=== PATIENT | female | born 1970 | race Caucasian/White ===

== ENCOUNTER 2018-06-24 08:40 | Day surgery (SDC) | payer MEDICAID ==
[2018-06-21 10:56] LABS: BASOPHILS % (AUTO) 0.2 % (0-1); EOSINOPHILS # (AUTO) 0.2 X10'3 (0-0.9); EOSINOPHILS % (AUTO) 2.8 % (0-6); LYMPHOCYTES # (AUTO) 1.4 X10'3 (1.1-4.8); LYMPHOCYTES % (AUTO) 21.2 % (21-51); MEAN CORPUSCULAR HEMOGLOBIN 29.9 PG (27.0-31.0); MEAN CORPUSCULAR HGB CONC 33.6 g/dL (33.0-36.5); MEAN PLATELET VOLUME 8.9 FL (7.4-10.4); MONOCYTES # (AUTO) 0.5 X10'3 (0-0.9); MONOCYTES % (AUTO) 7.9 % (2-12); NEUTROPHILS # (AUTO) 4.5 X10'3 (1.8-7.7); NEUTROPHILS % (AUTO) 67.9 % (42-75); PRE OP HEMATOCRIT 43.1 % (35.0-45.0); PRE OP HEMOGLOBIN 14.5 g/dL (12.0-16.0); PRE OP PLATELET COUNT 223 X10'3 (140-440); RED BLOOD COUNT 4.85 X10'6 (4.20-5.60); RED CELL DISTRIBUTION WIDTH 13.5 % (11.5-14.5)
[2018-06-21 11:13] LABS: PRE OP PROTIME 10.1 SECONDS (9.0-12.0)
[2018-06-21 11:21] LABS: ALBUMIN/GLOBULIN RATIO 1.1 (1.1-1.5); ALKALINE PHOSPHATASE 64 IU/L (46-116); BLOOD UREA NITROGEN 10 MG/DL (7-18); BUN/CREATININE RATIO 12.8 (6.6-38.0); CHLORIDE 103 MMOL/L (99-107); CREATININE 0.78 MG/DL (0.40-0.90); PRE OP ALT 37 U/L (30-65); PRE OP ANION GAP 9 (8-16); PRE OP AST 19 U/L (10-37); PRE OP BILIRUB, TOTAL 0.8 MG/DL (0.0-1.0); PRE OP GLUCOSE 99 MG/DL (70-104); PRE OP POTASSIUM 3.9 MMOL/L (3.4-5.1); PRE OP SODIUM 139 MMOL/L (135-145); TOTAL CARBON DIOXIDE 26.6 MMOL/L (24-32); TOTAL PROTEIN 7.6 G/DL (6.4-8.2); eGFR 80 ML/MIN
[2018-06-24] VITALS (8 sets, daily range): BP systolic 129–148; BP diastolic 76–101
[~2018-06-24] VITALS: Ht 167.6 cm; Wt 93.8 kg
[~2018-06-24 08:40] MED LIST: ALBU18HF2 INH; CLEAR LUNGS; CLINDAmcin 900mg/NS 50ml IVPB 50 ML IV ONE; FERR325T28 PO; LEVE750T PO; MULT-1141 PO; MUSHROOM COMPLEX; RANI150T8 PO; clindamycin 600mg/D5W 50ml 50 ML IV ONE; clindamycin-Cleocin 900mg/D5W 50 ML IV ONE; famotidine 20mg tablet PO ONE; ringers solution, lacted 1,000 ML IV SCH
--- NOTE | 2018-06-24 09:15 | NUR ---
PT STATES SHE HAD A SMALL RASH/SKIN IRRITATION AFTER USING THE CHG PREP AT HOME. DR HART NOTIFIED AND STATED TO USE BETADINE INSTEAD OF THE CHG WIPES. CLARIFIED WITH PT THAT SHE CAN TOLERATE BETADINE TOPICAL. PT STATED THAT SHE HAS USED THAT FOR A SURGERY PREP IN THE PAST WITHOUT ANY PROBLEMS.
[2018-06-24] MEDS ORDERED: triamcinolone acetonide 40mg/ml inj ONE (10:34)
[2018-06-24] MEDS ORDERED: BUPIVAcaine/PF 2.5mg/ml (0.25%) 10ml vial ONE (10:35)
[2018-06-24] MEDS ORDERED: fentaNYL/PF 50MCG/1 ML 2ML syringe ONE ×2 (11:27→11:50)
[2018-06-24] MEDS ORDERED: midazolam 2 mg/2 ml injection ONE (11:28)
[2018-06-24] MEDS ORDERED: LIDOcaine 2% (20mg/ml) 5ml vial ONE ×2 (11:31→11:42)
[2018-06-24] MEDS ORDERED: propofol inj 20 ML IV ONE (11:31)
[2018-06-24] MEDS ORDERED: ondansetron/PF 4mg/2ml inj ONE (12:23)
[2018-06-24] MEDS ORDERED: dexamethasone sod phosphate 4mg/ml inj. ONE (12:23)
--- NOTE | 2018-06-24 12:31 | NUR ---
Received from OR via [facility] , accompanied by Anesthesiologist SUSSY and report given by Anesthesiolgist. PATIENT WITH 20G PIV IN LEFT HAND RUNNING LR AT 100. DENIES PAIN. LEFT KNEE DRESSING IS CDI AND HAS + DORSALIS PEDIS. 10L MASK ON WITH 100% SATURATIONS. VSS Addendum: 06/24/18 at 1252 by Ramin Gaytan RN, RN Amended: Links added.
[2018-06-24] MEDS ORDERED: meperidine/PF 25mg/ml syringe IV PRN ×5 (12:55→13:30)
[2018-06-24] MEDS ORDERED: meperidine/PF 25mg/ml syringe ONE (12:57)
[2018-06-24] MEDS ORDERED: morphine 4 MG/ML inj SYRINge IV PRN ×2 (13:30)
[2018-06-24] MEDS ORDERED: ondansetron/PF 4mg/2ml inj IV PRN (13:30)
[2018-06-24] MEDS ORDERED: ringers solution, lacted 1,000 ML IV SCH (13:30)
[2018-06-24] MEDS ORDERED: proCHLORperazine 10 MG/2 ml inj IV PRN (13:30)
--- NOTE | 2018-06-24 13:41 | NUR ---
ALL DC CRITERIA HAS BEEN MET. IV TAKEN OUT WITHOUT COMPLICATIONS. ALL INSTRUCTIONS COVERED AND ALL QUESTIONS ANSWERED. DRESSINGS CDI. OUT VIA WHEELCHAIR TO PERSONAL VEHICLE WHERE PATIENT WAS SECURED IN AND DRIVEN HOME BY FAMILY. Addendum: 06/24/18 at 1353 by Ramin Gaytan RN, RN Amended: Links added.
== END 2018-06-24 13:41 | disposition home or self-care (01) ==
LOC: PAS 08:40
PROVIDERS: ATTEND Orthopaedic Surgery
DX: M23.222 Derangement of posterior horn of medial meniscus due to old tear or injury, left knee (principal); M23.262 Derangement of other lateral meniscus due to old tear or injury, left knee; M22.42 Chondromalacia patellae, left knee; M25.862 Other specified joint disorders, left knee; K21.9 Gastro-esophageal reflux disease without esophagitis; F41.8 Other specified anxiety disorders; E78.5 Hyperlipidemia, unspecified; J45.998 Other asthma; G40.909 Epilepsy, unspecified, not intractable, without status epilepticus; E66.8 Other obesity; E66.9 Obesity, unspecified; M17.0 Bilateral primary osteoarthritis of knee; Z88.3 Allergy status to other anti-infective agents; Z98.51 Tubal ligation status; Z88.0 Allergy status to penicillin; Z68.33 Body mass index [BMI] 33.0-33.9, adult; Z86.79 Personal history of other diseases of the circulatory system; Z88.1 Allergy status to other antibiotic agents; Z91.040 Latex allergy status; Z88.5 Allergy status to narcotic agent; Z88.2 Allergy status to sulfonamides; Z79.891 Long term (current) use of opiate analgesic; Z79.899 Other long term (current) drug therapy; Z88.8 Allergy status to other drugs, medicaments and biological substances; Z98.890 Other specified postprocedural states; Z84.89 Family history of other specified conditions
CPT/HCPCS: 29873; 29879; 29880; 36415; 80053; 82948; 85025; 85610; 85730; 93005; A6449; J1100; J2001; J2175; J2250; J2405; J2704; J3010; J3301; J3490; A6250; A7000; J7030; J7120

== ENCOUNTER 2018-11-23 12:26 | Emergency (ER) | payer MEDICAID ==
[~2018-11-23] VITALS: Ht 167.6 cm; Wt 94.0 kg
[~2018-11-23 12:26] MED LIST changes: -CLINDAmcin 900mg/NS 50ml IVPB 50 ML IV ONE; +ONDA4TAB6 PO; -clindamycin 600mg/D5W 50ml 50 ML IV ONE; -clindamycin-Cleocin 900mg/D5W 50 ML IV ONE; -famotidine 20mg tablet PO ONE; -ringers solution, lacted 1,000 ML IV SCH
[2018-11-23] MEDS ORDERED: CLIN150C2 PO (13:29)
[2018-11-23] MEDS ORDERED: clindamycin 150mg capsule PO ONE (13:30)
[2018-11-23 13:47] VITALS: BP 130/70
== END 2018-11-23 13:48 | disposition home or self-care (01) ==
LOC: ER 12:27
DX: J02.9 Acute pharyngitis, unspecified (principal); R11.2 Nausea with vomiting, unspecified; J45.909 Unspecified asthma, uncomplicated; K21.9 Gastro-esophageal reflux disease without esophagitis; F41.9 Anxiety disorder, unspecified; Z86.69 Personal history of other diseases of the nervous system and sense organs; Z98.890 Other specified postprocedural states; Z88.0 Allergy status to penicillin; Z88.8 Allergy status to other drugs, medicaments and biological substances; Z88.2 Allergy status to sulfonamides; Z88.5 Allergy status to narcotic agent; Z79.899 Other long term (current) drug therapy
CPT/HCPCS: 99283

== ENCOUNTER 2018-11-26 19:40 | Emergency (ER) | payer MEDICAID ==
[~2018-11-26] VITALS: Ht 172.7 cm; Wt 94.0 kg
[~2018-11-26 19:40] MED LIST changes: +CLIN150C2 PO
[2018-11-26 19:51] VITALS: BP 159/95
[2018-11-26] MEDS ORDERED: dexamethasone sod phosphate 10mg/ml inj PO STA (23:04)
== END 2018-11-26 23:26 | disposition home or self-care (01) ==
LOC: ER 19:41
DX: J04.0 Acute laryngitis (principal); J02.9 Acute pharyngitis, unspecified; J45.909 Unspecified asthma, uncomplicated; K21.9 Gastro-esophageal reflux disease without esophagitis; F41.9 Anxiety disorder, unspecified; Z86.69 Personal history of other diseases of the nervous system and sense organs; Z98.890 Other specified postprocedural states; Z88.8 Allergy status to other drugs, medicaments and biological substances; Z88.2 Allergy status to sulfonamides; Z88.1 Allergy status to other antibiotic agents; Z88.5 Allergy status to narcotic agent; Z88.6 Allergy status to analgesic agent; Z79.899 Other long term (current) drug therapy
CPT/HCPCS: 87081; 87880; 99283; J1100

== ENCOUNTER 2019-10-12 12:07 | Outpatient (CLI) | payer MEDICAID ==
[~2019-10-12 12:07] MED LIST changes: -CLIN150C2 PO
== END 2019-10-12 23:59 | disposition home or self-care (01) ==
LOC: VAS 12:07
PROVIDERS: ATTEND Orthopaedic Surgery
DX: S83.232D Complex tear of medial meniscus, current injury, left knee, subsequent encounter (principal); I87.2 Venous insufficiency (chronic) (peripheral); F41.9 Anxiety disorder, unspecified; M54.5 Low back pain; G40.909 Epilepsy, unspecified, not intractable, without status epilepticus; K21.9 Gastro-esophageal reflux disease without esophagitis; J45.909 Unspecified asthma, uncomplicated; E78.5 Hyperlipidemia, unspecified; E66.8 Other obesity; M17.11 Unilateral primary osteoarthritis, right knee; I82.421 Acute embolism and thrombosis of right iliac vein; X58.XXXD Exposure to other specified factors, subsequent encounter
CPT/HCPCS: 93970

== ENCOUNTER 2020-05-12 09:14 | Emergency (ER) | payer MEDICAID ==
[~2020-05-12] VITALS: Ht 167.6 cm; Wt 84.1 kg
[2020-05-12] MEDS ORDERED: ketorolac trometh. 30mg/ml inj. IV ONE (09:45)
[2020-05-12] MEDS ORDERED: ondansetron/PF 4mg/2ml inj IV ONE (09:45)
[2020-05-12] MEDS ORDERED: normal saline 1000ML IV soln IVB ONE (09:45)
[2020-05-12] MEDS ORDERED: morphine 4 MG/ML inj SYRINge IV PRN (09:45)
[2020-05-12 10:18] LABS: CLARITY,URINE SLIGHTLY CLOUDY (Clear); COLOR,URINE YELLOW (Yellow); GLUCOSE, URINE NEGATIVE (Neg); KETONES,URINE NEGATIVE (Neg); LEUKOCYTE ESTERASE ,URINE MODERATE (Neg); NITRITES, URINE NEGATIVE (Neg); OCCULT BLOOD,URINE SMALL (Neg); PROTEIN,URINE NEGATIVE (Neg); UROBILINOGEN,URINE 0.2 E.U/dL (0.2-1.0)
[2020-05-12 10:22] LABS: UA COLLECTION TYPE CLN CATCH MIDSTREAM; URINE HCG NEGATIVE (NEG)
[2020-05-12 10:23] LABS: BACTERIA,URINE 1+ /HPF (Neg); MUCUS STRANDS FEW /LPF (Neg); RBC,URINE 0-2 /HPF (0-2); SQUAMOUS EPITHELIAL CELL,UR FEW /LPF (FEW); WBC,URINE 20-30 /HPF (0-4)
[2020-05-12 10:26] LABS: BASOPHILS % (AUTO) 0.2 % (0-1); EOSINOPHILS % (AUTO) 0.5 % (0-6); HEMATOCRIT 38.9 % (35.0-45.0); LYMPHOCYTES # (AUTO) 0.8 X10'3 (1.1-4.8); MEAN CORPUSCULAR HEMOGLOBIN 29.8 PG (27.0-31.0); MEAN CORPUSCULAR HGB CONC 33.3 g/dL (33.0-36.5); MEAN CORPUSCULAR VOLUME 89.3 FL (78-98); MEAN PLATELET VOLUME 8.5 FL (7.4-10.4); MONOCYTES # (AUTO) 0.4 X10'3 (0-0.9); MONOCYTES % (AUTO) 7.2 % (2-12); NEUTROPHILS # (AUTO) 4.7 X10'3 (1.8-7.7); NEUTROPHILS % (AUTO) 78.1 % (42-75); PLATELET COUNT 199 X10'3 (140-440); RED BLOOD COUNT 4.36 X10'6 (4.20-5.60); RED CELL DISTRIBUTION WIDTH 13.1 % (11.5-14.5); WHITE BLOOD COUNT 6.1 X10'3 (4.5-11.0)
[2020-05-12 10:38] LABS: ALANINE AMINOTRANSFERASE 43 U/L (12-78); ALBUMIN 3.9 G/DL (3.4-5.0); ALBUMIN/GLOBULIN RATIO 1.1 (1.1-1.5); ALKALINE PHOSPHATASE 90 IU/L (46-116); ANION GAP 5 (8-16); ASPARTATE AMINO TRANSFERASE 19 U/L (10-37); BILIRUBIN,TOTAL 0.5 MG/DL (0.1-1.0); BLOOD UREA NITROGEN 15 MG/DL (7-18); BUN/CREATININE RATIO 20.8 (6.6-38.0); CHLORIDE 106 MMOL/L (99-107); CREATININE 0.72 MG/DL (0.40-0.90); GLUCOSE 89 MG/DL (70-104); LIPASE 88 U/L (73-393); POTASSIUM 4.3 MMOL/L (3.5-5.1); SODIUM 141 MMOL/L (135-145); TOTAL CARBON DIOXIDE 30.5 MMOL/L (24-32); TOTAL PROTEIN 7.3 G/DL (6.4-8.2); eGFR 86 ML/MIN
--- NOTE | 2020-05-12 13:00 | NUR ---
per [facility] bertha PT READY FOR DC. ALL MEDS CANCELLED
[2020-05-12 13:06] VITALS: BP 132/77
== END 2020-05-12 13:07 | disposition home or self-care (01) ==
LOC: ER 09:15
DX: R10.84 Generalized abdominal pain (principal); D28.7 Benign neoplasm of other specified female genital organs; J45.909 Unspecified asthma, uncomplicated; K21.9 Gastro-esophageal reflux disease without esophagitis; F41.9 Anxiety disorder, unspecified; Z86.69 Personal history of other diseases of the nervous system and sense organs; Z98.890 Other specified postprocedural states; Z88.0 Allergy status to penicillin; Z88.2 Allergy status to sulfonamides; Z88.1 Allergy status to other antibiotic agents; Z88.8 Allergy status to other drugs, medicaments and biological substances; Z79.899 Other long term (current) drug therapy
CPT/HCPCS: 36415; 74176; 80053; 81001; 81025; 83690; 85025; 87077; 87088; 87186; 99284

== ENCOUNTER 2020-05-21 13:16 | Emergency (ER) | payer MEDICAID ==
[~2020-05-21] VITALS: Ht 167.6 cm; Wt 81.8 kg
[2020-05-21 14:27] VITALS: BP 128/80
[2020-05-21] MEDS ORDERED: ketorolac tromethamine 15mg/ml inj. IM ONE (15:50)
[2020-05-21 16:04] LABS: CLARITY,URINE CLOUDY (Clear); COLOR,URINE YELLOW (Yellow); GLUCOSE, URINE NEGATIVE (Neg); KETONES,URINE NEGATIVE (Neg); LEUKOCYTE ESTERASE ,URINE MODERATE (Neg); NITRITES, URINE POSITIVE (Neg); OCCULT BLOOD,URINE NEGATIVE (Neg); PROTEIN,URINE NEGATIVE (Neg); UROBILINOGEN,URINE 0.2 E.U/dL (0.2-1.0)
[2020-05-21 16:05] LABS: UA COLLECTION TYPE CLN CATCH MIDSTREAM
[2020-05-21 16:10] LABS: BACTERIA,URINE 4+ /HPF (Neg); MUCUS STRANDS FEW /LPF (Neg); RBC,URINE 0-2 /HPF (0-2); SQUAMOUS EPITHELIAL CELL,UR FEW /LPF (FEW); WBC CLUMPS,URINE FEW /HPF (NEGATIVE)
[2020-05-21 16:14] LABS: BASOPHILS # (AUTO) 0.1 X10'3 (0-0.2); BASOPHILS % (AUTO) 0.7 % (0-1); EOSINOPHILS % (AUTO) 0.4 % (0-6); HEMATOCRIT 40.8 % (35.0-45.0); HEMOGLOBIN 13.4 g/dl (12.0-16.0); LYMPHOCYTES # (AUTO) 1.3 X10'3 (1.1-4.8); LYMPHOCYTES % (AUTO) 13.1 % (21-51); MEAN CORPUSCULAR HEMOGLOBIN 29.2 PG (27.0-31.0); MEAN CORPUSCULAR HGB CONC 32.8 g/dL (33.0-36.5); MEAN CORPUSCULAR VOLUME 89.1 FL (78-98); MEAN PLATELET VOLUME 8.2 FL (7.4-10.4); MONOCYTES # (AUTO) 0.4 X10'3 (0-0.9); MONOCYTES % (AUTO) 4.1 % (2-12); NEUTROPHILS # (AUTO) 8.2 X10'3 (1.8-7.7); NEUTROPHILS % (AUTO) 81.7 % (42-75); PLATELET COUNT 240 X10'3 (140-440); RED BLOOD COUNT 4.58 X10'6 (4.20-5.60); RED CELL DISTRIBUTION WIDTH 13.4 % (11.5-14.5); WHITE BLOOD COUNT 10.1 X10'3 (4.5-11.0)
[2020-05-21 16:25] LABS: ALANINE AMINOTRANSFERASE 27 U/L (12-78); ALBUMIN 4.3 G/DL (3.4-5.0); ALBUMIN/GLOBULIN RATIO 1.2 (1.1-1.5); ALKALINE PHOSPHATASE 77 IU/L (46-116); ANION GAP 5 (8-16); ASPARTATE AMINO TRANSFERASE 13 U/L (10-37); BILIRUBIN,TOTAL 0.7 MG/DL (0.1-1.0); BLOOD UREA NITROGEN 17 MG/DL (7-18); BUN/CREATININE RATIO 23.9 (6.6-38.0); CALCIUM 9.1 MG/DL (8.5-10.1); CHLORIDE 103 MMOL/L (99-107); CREATININE 0.71 MG/DL (0.40-0.90); GLUCOSE 92 MG/DL (70-104); LIPASE 75 U/L (73-393); POTASSIUM 3.9 MMOL/L (3.5-5.1); SODIUM 139 MMOL/L (135-145); TOTAL CARBON DIOXIDE 31.2 MMOL/L (24-32); TOTAL PROTEIN 7.8 G/DL (6.4-8.2); eGFR 88 ML/MIN
[2020-05-21] MEDS ORDERED: PHEN-824 PO (16:25)
[2020-05-21] MEDS ORDERED: NITR100C6 PO (16:25)
== END 2020-05-21 16:47 | disposition home or self-care (01) ==
LOC: ER 13:17
DX: R10.31 Right lower quadrant pain (principal); R10.32 Left lower quadrant pain; N39.0 Urinary tract infection, site not specified; J45.909 Unspecified asthma, uncomplicated; K21.9 Gastro-esophageal reflux disease without esophagitis; Z86.69 Personal history of other diseases of the nervous system and sense organs; Z98.890 Other specified postprocedural states; Z88.0 Allergy status to penicillin; Z88.1 Allergy status to other antibiotic agents; Z88.2 Allergy status to sulfonamides; Z88.8 Allergy status to other drugs, medicaments and biological substances; Z79.899 Other long term (current) drug therapy
CPT/HCPCS: 36415; 80053; 81001; 83690; 85025; 87088; 87186; 96372; 99283; J1885; 87077

== ENCOUNTER 2020-06-17 12:15 | Emergency (ER) | payer MEDICAID ==
[~2020-06-17] VITALS: Ht 167.6 cm; Wt 81.8 kg
[~2020-06-17 12:15] MED LIST changes: +NITR100C6 PO; +PHEN-824 PO
[2020-06-17] MEDS ORDERED: HYDROcodone/acetaminophen 5mg/325mg tablet PO ONE (12:50)
[2020-06-17 13:04] VITALS: BP 119/82
[2020-06-17 13:07] LABS: CLARITY,URINE SLIGHTLY CLOUDY (Clear); COLOR,URINE YELLOW (Yellow); GLUCOSE, URINE NEGATIVE (Neg); KETONES,URINE NEGATIVE (Neg); LEUKOCYTE ESTERASE ,URINE TRACE (Neg); NITRITES, URINE POSITIVE (Neg); OCCULT BLOOD,URINE NEGATIVE (Neg); PH,URINE 5.5 (4.8-8.0); PROTEIN,URINE NEGATIVE (Neg); UROBILINOGEN,URINE 0.2 E.U/dL (0.2-1.0)
[2020-06-17 13:08] LABS: UA COLLECTION TYPE CLN CATCH MIDSTREAM
[2020-06-17 13:17] LABS: SQUAMOUS EPITHELIAL CELL,UR MODERATE /LPF (FEW)
[2020-06-17 13:19] LABS: BACTERIA,URINE 3+ /HPF (Neg); RBC,URINE NONE SEEN /HPF (0-2)
[2020-06-17] MEDS ORDERED: HYDR-3965 PO (13:33)
[2020-06-17] MEDS ORDERED: CIPR-113 PO (13:33)
== END 2020-06-17 13:50 | disposition home or self-care (01) ==
LOC: ER 12:17
DX: N39.0 Urinary tract infection, site not specified (principal); R10.32 Left lower quadrant pain; J45.909 Unspecified asthma, uncomplicated; K21.9 Gastro-esophageal reflux disease without esophagitis; Z86.69 Personal history of other diseases of the nervous system and sense organs; Z88.0 Allergy status to penicillin; Z88.1 Allergy status to other antibiotic agents; Z88.2 Allergy status to sulfonamides; Z88.8 Allergy status to other drugs, medicaments and biological substances; Z79.899 Other long term (current) drug therapy; Z79.2 Long term (current) use of antibiotics
CPT/HCPCS: 81001; 87077; 87088; 87186; 99283

== ENCOUNTER 2020-06-18 16:33 | Emergency (ER) | payer MEDICAID ==
[~2020-06-18] VITALS: Ht 167.6 cm; Wt 81.8 kg
[~2020-06-18 16:33] MED LIST changes: +CIPR-113 PO; +HYDR-3965 PO
[2020-06-18 16:38] VITALS: BP 136/82
== END 2020-06-18 17:26 | disposition home or self-care (01) ==
LOC: ER 16:36
DX: D36.9 Benign neoplasm, unspecified site (principal); J45.909 Unspecified asthma, uncomplicated; K21.9 Gastro-esophageal reflux disease without esophagitis; Z86.69 Personal history of other diseases of the nervous system and sense organs; Z98.890 Other specified postprocedural states; Z88.0 Allergy status to penicillin; Z88.1 Allergy status to other antibiotic agents; Z88.2 Allergy status to sulfonamides; Z88.8 Allergy status to other drugs, medicaments and biological substances; Z79.2 Long term (current) use of antibiotics; Z79.899 Other long term (current) drug therapy
CPT/HCPCS: 99281

== ENCOUNTER 2020-10-04 09:31 | Day surgery (SDC) | payer MEDICAID ==
[2020-09-27 15:14] LABS: CLARITY,URINE SLIGHTLY CLOUDY (Clear); COLOR,URINE YELLOW (Yellow); GLUCOSE, URINE NEGATIVE (Neg); KETONES,URINE NEGATIVE (Neg); LEUKOCYTE ESTERASE ,URINE NEGATIVE (Neg); NITRITES, URINE NEGATIVE (Neg); OCCULT BLOOD,URINE LARGE (Neg); PH,URINE 6.5 (4.8-8.0); PROTEIN,URINE NEGATIVE (Neg); UROBILINOGEN,URINE 0.2 E.U/dL (0.2-1.0)
[2020-09-27 15:15] LABS: UA COLLECTION TYPE CLN CATCH MIDSTREAM
[2020-09-27 15:17] LABS: BASOPHILS % (AUTO) 0.3 % (0-1); EOSINOPHILS # (AUTO) 0.1 X10'3 (0-0.9); EOSINOPHILS % (AUTO) 0.9 % (0-6); LYMPHOCYTES # (AUTO) 1.6 X10'3 (1.1-4.8); LYMPHOCYTES % (AUTO) 28.4 % (21-51); MEAN CORPUSCULAR HEMOGLOBIN 29.4 PG (27.0-31.0); MEAN CORPUSCULAR HGB CONC 33.2 g/dL (33.0-36.5); MEAN CORPUSCULAR VOLUME 88.4 FL (78-98); MEAN PLATELET VOLUME 8.6 FL (7.4-10.4); MONOCYTES # (AUTO) 0.6 X10'3 (0-0.9); MONOCYTES % (AUTO) 10.4 % (2-12); NEUTROPHILS # (AUTO) 3.4 X10'3 (1.8-7.7); PRE OP HEMATOCRIT 40.7 % (35.0-45.0); PRE OP HEMOGLOBIN 13.5 g/dL (12.0-16.0); PRE OP PLATELET COUNT 239 X10'3 (140-440); RED BLOOD COUNT 4.61 X10'6 (4.20-5.60)
[2020-09-27 15:30] LABS: ALBUMIN 4.1 G/DL (3.4-5.0); ALBUMIN/GLOBULIN RATIO 1.2 (1.1-1.5); ALKALINE PHOSPHATASE 62 IU/L (46-116); BLOOD UREA NITROGEN 14 MG/DL (7-18); BUN/CREATININE RATIO 20.9 (6.6-38.0); CALCIUM 9.4 MG/DL (8.5-10.1); CHLORIDE 105 MMOL/L (99-107); CREATININE 0.67 MG/DL (0.40-0.90); PRE OP ALT 33 U/L (30-65); PRE OP ANION GAP 9 (8-16); PRE OP AST 20 U/L (10-37); PRE OP BILIRUB, TOTAL 0.8 MG/DL (0.0-1.0); PRE OP GLUCOSE 91 MG/DL (70-104); PRE OP POTASSIUM 3.8 MMOL/L (3.4-5.1); PRE OP SODIUM 143 MMOL/L (135-145); TOTAL CARBON DIOXIDE 29.1 MMOL/L (24-32); TOTAL PROTEIN 7.4 G/DL (6.4-8.2); eGFR > 90 ML/MIN
[2020-09-27 15:54] LABS: BACTERIA,URINE FEW /HPF (Neg); MUCUS STRANDS MODERATE /LPF (Neg); RBC,URINE TNTC /HPF (0-2); SQUAMOUS EPITHELIAL CELL,UR MODERATE /LPF (FEW); WBC,URINE 0-4 /HPF (0-4)
[2020-09-27 15:55] LABS: HCG SERUM QL NEGATIVE
[~2020-10-04] VITALS: Ht 167.6 cm; Wt 88.0 kg
[2020-10-04] VITALS (18 sets, daily range): BP systolic 101–150; BP diastolic 59–83
[~2020-10-04 09:31] MED LIST changes: +ACET-1025 PO; +ACET-2319 PO; +BECL10.6 PO; -CIPR-113 PO; -CLEAR LUNGS; +CYCL-1 PO; -HYDR-3965 PO; +LISI-790 PO; +LORA10TA7 PO; +MONT10TA32 PO; -MUSHROOM COMPLEX; +NAPR-996 PO; -NITR100C6 PO; +OMEP-50 PO; -ONDA4TAB6 PO; -PHEN-824 PO; -RANI150T8 PO; +clindamycin-Cleocin 900mg/D5W 50 ML IV ONE; +famotidine 20mg tablet PO ONE; +gentamicin inj 300 MG in normal saline 100ml IV soln 92.5 ML IV ONE; +ringers solution, lacted 1,000 ML IV SCH
[2020-10-04] MEDS ORDERED: BUPIVAcaine 0.5% W/EPI /PF 30ml vial ONE (13:29)
[2020-10-04] MEDS ORDERED: BUPIVAcaine/PF 2.5 mg/ml (0.25%) 30ml vial ONE (13:29)
[2020-10-04] MEDS ORDERED: fentaNYL/PF 50MCG/1 ML 2ML syringe ONE (13:48)
[2020-10-04] MEDS ORDERED: midazolam 1 mg/ML 2ml injection ONE (13:48)
[2020-10-04] MEDS ORDERED: propofol inj 20 ML IV ONE (13:50)
[2020-10-04] MEDS ORDERED: BUPIVAcaine HCl 0.25%/EPInephrine 1:200,000 inj. 10 ML VIAL ONE (13:50)
[2020-10-04] MEDS ORDERED: ondansetron/PF 4mg/2ml inj ONE (13:58)
[2020-10-04] MEDS ORDERED: rocuronium 10mg/ml inj IV ONE (13:59)
[2020-10-04] MEDS ORDERED: dexamethasone sod phosphate 4mg/ml inj. ONE (14:02)
[2020-10-04] MEDS ORDERED: morphine 4 MG/ML inj SYRINge IV PRN (14:15)
[2020-10-04] MEDS ORDERED: ondansetron/PF 4mg/2ml inj IV PRN (14:15)
[2020-10-04] MEDS ORDERED: meperidine/PF 25mg/ml syringe IV PRN ×2 (14:15)
[2020-10-04] MEDS ORDERED: ringers solution, lacted 1,000 ML IV SCH (14:15)
[2020-10-04] MEDS ORDERED: morphine 2 MG/ML inj. syringe IV PRN (14:15)
[2020-10-04] MEDS ORDERED: proCHLORperazine 10 MG/2 ml inj IV PRN (14:15)
[2020-10-04] MEDS ORDERED: meperidine/PF 25mg/ml syringe ONE (15:06)
[2020-10-04] MEDS: meperidine/PF 25mg/ml syringe IV PRN ×2 (16:20→16:41)
--- NOTE | 2020-10-04 16:20 | NUR ---
Received from OR via [facility], accompanied by Anesthesiologist DR. AMAYA and report given by Anesthesiologist. PATIENT WAKING UP, NO S/S OF PAIN, V/S WNL, SCD ON, 20G TO LUE, LAP SURGICAL SITES TO ABDOMEN X 3 DERMABONDED-CDI.
--- NOTE | 2020-10-04 17:40 | NUR ---
PT GOT UP TO [facility] WITH SOME C/O DIZZINESS AND NAUSEA-WANTED TO VOID AND SAID SHE COULDNT USE A BEDPAN, PT UNABLE TO VOID, ASKED FOR COMPAZINE FOR NAUSEA. PT WAS ABLE TO GET DRESSED BUT INSISTED ON LAYING DOWN AGAIN. VSS, PAIN CONTROLLED.
--- NOTE | 2020-10-04 18:50 | NUR ---
PT AWAKE AND ABLE TO MOVE TO W/C, VSS, NAUSEA BETTER, PAIN MANAGEABLE-PT WANTS TO TAKE PAIN MEDS AT HOME, DERMABOND SITES INTACT, GIVEN PERIPAD FOR MINIMAL BLEEDING, PIV D/CD-NO SN/SX OF BLEEDING, GIVEN D/C INSTRUCTIONS-ALL QUESTIONS ANSWERED, PT TAKEN WITH ALL BELONGINGS TO FAMILY CAR-FAMILY TO TRANSPORT HOME.
== END 2020-10-04 18:50 | disposition home or self-care (01) ==
LOC: PAS 09:31
PROVIDERS: ATTEND Obstetrics & Gynecology Obstetrics
DX: D27.1 Benign neoplasm of left ovary (principal); R10.2 Pelvic and perineal pain; Z20.822 Contact with and (suspected) exposure to COVID-19; Z79.899 Other long term (current) drug therapy; D64.9 Anemia, unspecified; J45.909 Unspecified asthma, uncomplicated; K21.9 Gastro-esophageal reflux disease without esophagitis; G40.909 Epilepsy, unspecified, not intractable, without status epilepticus
CPT/HCPCS: 36415; 58661; 71045; 80053; 81001; 82948; 84703; 85025; 86885; 86900; 86901; 93005; J0780; J1100; J1580; J2175; J2250; J2405; J2704; J3010; J3490; J7120; U0003; U0005; A4618; A7000

== ENCOUNTER 2020-10-25 12:04 | Emergency (ER) | payer MEDICAID ==
[~2020-10-25] VITALS: Ht 167.6 cm; Wt 87.6 kg
[~2020-10-25 12:04] MED LIST changes: -clindamycin-Cleocin 900mg/D5W 50 ML IV ONE; -famotidine 20mg tablet PO ONE; -gentamicin inj 300 MG in normal saline 100ml IV soln 92.5 ML IV ONE; -ringers solution, lacted 1,000 ML IV SCH
[2020-10-25 12:51] LABS: BASOPHILS % (AUTO) 0.2 % (0-1); EOSINOPHILS # (AUTO) 0.1 X10'3 (0-0.9); EOSINOPHILS % (AUTO) 0.9 % (0-6); HEMATOCRIT 39.4 % (35.0-45.0); HEMOGLOBIN 12.7 g/dl (12.0-16.0); LYMPHOCYTES # (AUTO) 1.3 X10'3 (1.1-4.8); LYMPHOCYTES % (AUTO) 10.2 % (21-51); MEAN CORPUSCULAR HEMOGLOBIN 28.4 PG (27.0-31.0); MEAN CORPUSCULAR HGB CONC 32.2 g/dL (33.0-36.5); MEAN CORPUSCULAR VOLUME 88.2 FL (78-98); MEAN PLATELET VOLUME 8.5 FL (7.4-10.4); MONOCYTES # (AUTO) 0.7 X10'3 (0-0.9); MONOCYTES % (AUTO) 5.4 % (2-12); NEUTROPHILS # (AUTO) 10.9 X10'3 (1.8-7.7); NEUTROPHILS % (AUTO) 83.3 % (42-75); PLATELET COUNT 231 X10'3 (140-440); RED BLOOD COUNT 4.47 X10'6 (4.20-5.60); WHITE BLOOD COUNT 13.1 X10'3 (4.5-11.0)
[2020-10-25 12:53] LABS: CLARITY,URINE SLIGHTLY CLOUDY (Clear); COLOR,URINE YELLOW (Yellow); GLUCOSE, URINE NEGATIVE (Neg); KETONES,URINE NEGATIVE (Neg); LEUKOCYTE ESTERASE ,URINE TRACE (Neg); NITRITES, URINE NEGATIVE (Neg); OCCULT BLOOD,URINE NEGATIVE (Neg); PH,URINE 5.5 (4.8-8.0); PROTEIN,URINE NEGATIVE (Neg); UROBILINOGEN,URINE 0.2 E.U/dL (0.2-1.0)
[2020-10-25 12:58] LABS: URINE HCG NEGATIVE (NEG)
[2020-10-25 13:00] LABS: UA COLLECTION TYPE CLN CATCH MIDSTREAM
[2020-10-25 13:03] LABS: BACTERIA,URINE 4+ /HPF (Neg); MUCUS STRANDS FEW /LPF (Neg); RBC,URINE NONE SEEN /HPF (0-2); SQUAMOUS EPITHELIAL CELL,UR MANY /LPF (FEW)
[2020-10-25 13:03] LABS: ALANINE AMINOTRANSFERASE 26 U/L (12-78); ALBUMIN/GLOBULIN RATIO 1.3 (1.1-1.5); ALKALINE PHOSPHATASE 77 IU/L (46-116); ANION GAP 6 (8-16); ASPARTATE AMINO TRANSFERASE 14 U/L (10-37); BILIRUBIN,TOTAL 0.6 MG/DL (0.1-1.0); BLOOD UREA NITROGEN 14 MG/DL (7-18); BUN/CREATININE RATIO 21.9 (6.6-38.0); CALCIUM 8.9 MG/DL (8.5-10.1); CHLORIDE 105 MMOL/L (99-107); CREATININE 0.64 MG/DL (0.40-0.90); GLUCOSE 85 MG/DL (70-104); LIPASE 127 U/L (73-393); POTASSIUM 3.7 MMOL/L (3.5-5.1); SODIUM 141 MMOL/L (135-145); TOTAL PROTEIN 7.2 G/DL (6.4-8.2); eGFR > 90 ML/MIN
[2020-10-25 13:59] VITALS: BP 121/76
== END 2020-10-25 14:07 | disposition home or self-care (01) ==
LOC: ER 12:04
DX: R10.33 Periumbilical pain (principal); J45.909 Unspecified asthma, uncomplicated; K21.9 Gastro-esophageal reflux disease without esophagitis; F41.9 Anxiety disorder, unspecified; Z86.69 Personal history of other diseases of the nervous system and sense organs; Z98.890 Other specified postprocedural states; Z88.0 Allergy status to penicillin; Z88.8 Allergy status to other drugs, medicaments and biological substances; Z88.2 Allergy status to sulfonamides; Z88.1 Allergy status to other antibiotic agents; Z88.5 Allergy status to narcotic agent; Z79.899 Other long term (current) drug therapy
CPT/HCPCS: 36415; 76857; 80053; 81001; 81025; 83690; 85025; 99284

== ENCOUNTER 2020-11-03 20:13 | Emergency (ER) | payer MEDICAID ==
[~2020-11-03] VITALS: Ht 167.6 cm; Wt 78.0 kg
[2020-11-03 20:18] VITALS: BP 179/95
== END 2020-11-03 22:18 | disposition home or self-care (01) ==
LOC: ER 20:13
DX: S93.601A Unspecified sprain of right foot, initial encounter (principal); M79.671 Pain in right foot; W18.40XA Slipping, tripping and stumbling without falling, unspecified, initial encounter; Y93.89 Activity, other specified; Y92.89 Other specified places as the place of occurrence of the external cause; Y99.8 Other external cause status
CPT/HCPCS: 73630; 99283

== ENCOUNTER 2020-12-10 08:25 | Emergency (ER) | payer MEDICAID ==
[~2020-12-10] VITALS: Ht 167.6 cm; Wt 86.0 kg
[~2020-12-10 08:25] MED LIST changes: +LIDOcaine 1% 30ml preserv. free vial ONE
[2020-12-10 08:47] VITALS: BP 141/76
[2020-12-10] MEDS ORDERED: cephalexin 500mg capsule PO ONE (11:40)
[2020-12-10] MEDS ORDERED: CEPH-585 PO ×2 (12:23→12:42)
== END 2020-12-10 12:40 | disposition home or self-care (01) ==
LOC: ER 08:26
DX: S92.511A Displaced fracture of proximal phalanx of right lesser toe(s), initial encounter for closed fracture (principal); G40.909 Epilepsy, unspecified, not intractable, without status epilepticus; J44.9 Chronic obstructive pulmonary disease, unspecified; E11.9 Type 2 diabetes mellitus without complications; Z98.890 Other specified postprocedural states; Z88.0 Allergy status to penicillin; Z88.1 Allergy status to other antibiotic agents; Z88.2 Allergy status to sulfonamides; Z88.8 Allergy status to other drugs, medicaments and biological substances; Z79.2 Long term (current) use of antibiotics; Z79.899 Other long term (current) drug therapy; W18.49XA Other slipping, tripping and stumbling without falling, initial encounter; Y93.89 Activity, other specified; Y92.89 Other specified places as the place of occurrence of the external cause; Y99.8 Other external cause status
CPT/HCPCS: 20552; 73660; 99284; J2001; 28515; 99283

== ENCOUNTER 2021-06-20 12:25 | Emergency (ER) | payer MEDICAID ==
[~2021-06-20] VITALS: Ht 167.6 cm; Wt 81.8 kg
[~2021-06-20 12:25] MED LIST changes: +CEPH-585 PO; -LIDOcaine 1% 30ml preserv. free vial ONE; -LISI-790 PO; +LISI5TAB22 PO; +MONT-40 PO; -MONT10TA32 PO; -OMEP-50 PO; +OMEP20CA16 PO
[2021-06-20 12:39] VITALS: BP 134/80
[2021-06-20] MEDS ORDERED: PRED20TA PO (12:43)
[2021-06-20] MEDS ORDERED: ALBU6.7H9 INH (12:43)
[2021-06-20] MEDS ORDERED: LEVO500T90 PO (12:43)
== END 2021-06-20 13:45 | disposition home or self-care (01) ==
LOC: ER 12:25
DX: J45.909 Unspecified asthma, uncomplicated (principal); Z20.822 Contact with and (suspected) exposure to COVID-19; G40.919 Epilepsy, unspecified, intractable, without status epilepticus; E11.9 Type 2 diabetes mellitus without complications; F41.9 Anxiety disorder, unspecified; K21.9 Gastro-esophageal reflux disease without esophagitis; Z98.890 Other specified postprocedural states; Z88.0 Allergy status to penicillin; Z88.1 Allergy status to other antibiotic agents; Z88.8 Allergy status to other drugs, medicaments and biological substances; Z88.2 Allergy status to sulfonamides; Z79.899 Other long term (current) drug therapy
CPT/HCPCS: 71045; 87635; 99284; C9803

== ENCOUNTER 2021-07-09 10:55 | Emergency (ER) | payer MEDICAID ==
[~2021-07-09] VITALS: Ht 167.6 cm; Wt 81.8 kg
[~2021-07-09 10:55] MED LIST changes: +ALBU6.7H9 INH
[2021-07-09 11:03] VITALS: BP 144/74
[2021-07-09] MEDS ORDERED: PRED20TA PO (13:55)
== END 2021-07-09 14:26 | disposition home or self-care (01) ==
LOC: ER 10:55
DX: R20.0 Anesthesia of skin (principal); R20.2 Paresthesia of skin; J45.909 Unspecified asthma, uncomplicated; K21.9 Gastro-esophageal reflux disease without esophagitis; E11.9 Type 2 diabetes mellitus without complications; Z98.890 Other specified postprocedural states; Z90.721 Acquired absence of ovaries, unilateral; Z88.0 Allergy status to penicillin; Z88.1 Allergy status to other antibiotic agents; Z88.2 Allergy status to sulfonamides; Z88.8 Allergy status to other drugs, medicaments and biological substances; Z79.899 Other long term (current) drug therapy
CPT/HCPCS: 93922; 97597; 99284

== ENCOUNTER 2021-11-16 16:51 | Emergency (ER) | payer MEDICAID ==
[~2021-11-16] VITALS: Ht 167.6 cm; Wt 81.8 kg
[2021-11-16 16:57] VITALS: BP 135/53
[2021-11-16] MEDS ORDERED: LIDO1ADH58 TOP (18:04)
[2021-11-16] MEDS ORDERED: ACET325T63 PO (18:04)
== END 2021-11-16 18:30 | disposition home or self-care (01) ==
LOC: ER 16:52
DX: M79.602 Pain in left arm (principal); R20.0 Anesthesia of skin; J45.909 Unspecified asthma, uncomplicated; K21.9 Gastro-esophageal reflux disease without esophagitis; F41.9 Anxiety disorder, unspecified; E11.9 Type 2 diabetes mellitus without complications; Z88.0 Allergy status to penicillin; Z88.1 Allergy status to other antibiotic agents; Z79.899 Other long term (current) drug therapy; Z88.2 Allergy status to sulfonamides; Z88.5 Allergy status to narcotic agent; Z79.1 Long term (current) use of non-steroidal anti-inflammatories (NSAID); Z79.2 Long term (current) use of antibiotics
CPT/HCPCS: 29125; 99283; A4565

== ENCOUNTER 2022-04-29 10:08 | Emergency (ER) | payer MEDICAID ==
[~2022-04-29] VITALS: Ht 167.6 cm; Wt 68.2 kg
[~2022-04-29 10:08] MED LIST changes: +ALBU6.7H14 INH; -ALBU6.7H9 INH; +LIDO1ADH58 TOP
[2022-04-29] MEDS ORDERED: BENZ-38 PO (16:40)
[2022-04-29 17:03] VITALS: BP 119/81
== END 2022-04-29 17:04 | disposition home or self-care (01) ==
LOC: ER 10:08
DX: R05.1 Acute cough (principal); R09.81 Nasal congestion; R50.9 Fever, unspecified; J45.909 Unspecified asthma, uncomplicated; K21.9 Gastro-esophageal reflux disease without esophagitis; E11.9 Type 2 diabetes mellitus without complications; F41.9 Anxiety disorder, unspecified; Z88.0 Allergy status to penicillin; Z88.1 Allergy status to other antibiotic agents; Z88.2 Allergy status to sulfonamides; Z79.899 Other long term (current) drug therapy; Z88.5 Allergy status to narcotic agent
CPT/HCPCS: 99283

== ENCOUNTER 2022-06-03 09:06 | Emergency (ER) | payer MEDICAID ==
[~2022-06-03] VITALS: Ht 167.6 cm; Wt 72.0 kg
[2022-06-03] MEDS ORDERED: levetiracetam inj 1,000 MG in normal saline 100ml IV soln 90 ML IV ONE (09:25)
[2022-06-03] MEDS ORDERED: levetiracetam inj 1,000 MG in normal saline 100ml IV soln 100 ML IV ONE (09:28)
[2022-06-03 10:29] LABS: BASOPHILS % (AUTO) 0.2 % (0-1); EOSINOPHILS % (AUTO) 0.7 % (0-6); HEMATOCRIT 40.2 % (35.0-45.0); LYMPHOCYTES # (AUTO) 0.7 X10'3 (1.1-4.8); LYMPHOCYTES % (AUTO) 15.1 % (21-51); MEAN CORPUSCULAR HEMOGLOBIN 29.6 PG (27.0-31.0); MEAN CORPUSCULAR HGB CONC 32.4 g/dL (33.0-36.5); MEAN CORPUSCULAR VOLUME 91.2 FL (78-98); MEAN PLATELET VOLUME 8.4 FL (7.4-10.4); MONOCYTES # (AUTO) 0.3 X10'3 (0-0.9); MONOCYTES % (AUTO) 5.5 % (2-12); NEUTROPHILS # (AUTO) 3.9 X10'3 (1.8-7.7); NEUTROPHILS % (AUTO) 78.5 % (42-75); PLATELET COUNT 189 X10'3 (140-440); RED BLOOD COUNT 4.41 X10'6 (4.20-5.60); RED CELL DISTRIBUTION WIDTH 13.6 % (11.5-14.5); WHITE BLOOD COUNT 4.9 X10'3 (4.5-11.0)
[2022-06-03 10:34] LABS: ALANINE AMINOTRANSFERASE 34 U/L (12-78); ALBUMIN 3.7 G/DL (3.4-5.0); ALBUMIN/GLOBULIN RATIO 1.2 (1.1-1.5); ALKALINE PHOSPHATASE 71 IU/L (46-116); ANION GAP 7 (8-16); ASPARTATE AMINO TRANSFERASE 21 U/L (10-37); BILIRUBIN,TOTAL 0.5 MG/DL (0.1-1.0); BLOOD UREA NITROGEN 13 MG/DL (7-18); BUN/CREATININE RATIO 20.6 (6.6-38.0); CHLORIDE 103 MMOL/L (99-107); CREATININE 0.63 MG/DL (0.40-0.90); GLUCOSE 134 MG/DL (70-104); POTASSIUM 3.6 MMOL/L (3.5-5.1); SODIUM 138 MMOL/L (135-145); TOTAL CARBON DIOXIDE 28.3 MMOL/L (24-32); TOTAL PROTEIN 6.9 G/DL (6.4-8.2); eGFR > 90 ML/MIN
[2022-06-03] MEDS ORDERED: LEVE750T6 PO (12:44)
[2022-06-03 13:23] VITALS: BP 124/81
== END 2022-06-03 13:25 | disposition home or self-care (01) ==
LOC: ER 09:06
DX: R56.9 Unspecified convulsions (principal); J45.909 Unspecified asthma, uncomplicated; E11.9 Type 2 diabetes mellitus without complications; F41.9 Anxiety disorder, unspecified; Z90.721 Acquired absence of ovaries, unilateral; Z79.2 Long term (current) use of antibiotics; Z79.899 Other long term (current) drug therapy; Z88.0 Allergy status to penicillin; Z88.1 Allergy status to other antibiotic agents; Z88.2 Allergy status to sulfonamides; Z88.8 Allergy status to other drugs, medicaments and biological substances
CPT/HCPCS: 36415; 71045; 80053; 80177; 85025; 96365; 96366; 99284; J1953; J3490; J7030

== ENCOUNTER 2022-06-29 09:02 | Emergency (ER) | payer MEDICAID ==
[~2022-06-29] VITALS: Ht 167.6 cm; Wt 77.0 kg
[~2022-06-29 09:02] MED LIST changes: +LEVE750T6 PO
[2022-06-29 09:15] VITALS: BP 129/91
== END 2022-06-29 10:37 | disposition home or self-care (01) ==
LOC: ER 09:02
DX: S46.912A Strain of unspecified muscle, fascia and tendon at shoulder and upper arm level, left arm, initial encounter (principal); J45.909 Unspecified asthma, uncomplicated; K21.9 Gastro-esophageal reflux disease without esophagitis; E11.9 Type 2 diabetes mellitus without complications; Z88.0 Allergy status to penicillin; Z88.1 Allergy status to other antibiotic agents; Z91.041 Radiographic dye allergy status; Z88.2 Allergy status to sulfonamides; Z98.890 Other specified postprocedural states; X58.XXXA Exposure to other specified factors, initial encounter; Y93.89 Activity, other specified; Y92.89 Other specified places as the place of occurrence of the external cause; Y99.8 Other external cause status
CPT/HCPCS: 99282

== ENCOUNTER 2022-08-12 13:07 | Emergency (ER) | payer MEDICAID ==
[~2022-08-12] VITALS: Ht 167.6 cm; Wt 79.9 kg
[2022-08-12 13:14] VITALS: BP 114/84
--- NOTE | 2022-08-12 16:19 | NUR ---
RN collected Covid swab and Strep throat culture. Patient tolerated well. Continue to monitor.
== END 2022-08-12 16:58 | disposition home or self-care (01) ==
LOC: ER 13:07
DX: J06.9 Acute upper respiratory infection, unspecified (principal); Z20.822 Contact with and (suspected) exposure to COVID-19; K21.9 Gastro-esophageal reflux disease without esophagitis; E11.9 Type 2 diabetes mellitus without complications; J45.909 Unspecified asthma, uncomplicated; Z88.0 Allergy status to penicillin; Z88.8 Allergy status to other drugs, medicaments and biological substances; Z79.899 Other long term (current) drug therapy; Z88.2 Allergy status to sulfonamides; Z88.1 Allergy status to other antibiotic agents; Z79.1 Long term (current) use of non-steroidal anti-inflammatories (NSAID); Z79.2 Long term (current) use of antibiotics
CPT/HCPCS: 71045; 87081; 87811; 87880; 99284

== ENCOUNTER 2022-11-14 13:20 | Emergency (ER) | payer MEDICAID ==
[~2022-11-14] VITALS: Ht 167.6 cm; Wt 77.3 kg
[2022-11-14] MEDS ORDERED: normal saline 1000ml 1,000 ML IV ONE (14:40)
[2022-11-14 15:08] LABS: BASOPHILS % (AUTO) 0.2 % (0-1); EOSINOPHILS % (AUTO) 0.2 % (0-6); HEMATOCRIT 41.2 % (35.0-45.0); HEMOGLOBIN 13.8 g/dl (12.0-16.0); LYMPHOCYTES # (AUTO) 0.4 X10'3 (1.1-4.8); LYMPHOCYTES % (AUTO) 3.3 % (21-51); MEAN CORPUSCULAR HEMOGLOBIN 29.9 PG (27.0-31.0); MEAN CORPUSCULAR HGB CONC 33.4 g/dL (33.0-36.5); MEAN CORPUSCULAR VOLUME 89.4 FL (78-98); MEAN PLATELET VOLUME 8.2 FL (7.4-10.4); MONOCYTES # (AUTO) 0.6 X10'3 (0-0.9); MONOCYTES % (AUTO) 5.4 % (2-12); NEUTROPHILS # (AUTO) 9.6 X10'3 (1.8-7.7); NEUTROPHILS % (AUTO) 90.9 % (42-75); PLATELET COUNT 181 X10'3 (140-440); RED BLOOD COUNT 4.61 X10'6 (4.20-5.60); RED CELL DISTRIBUTION WIDTH 13.9 % (11.5-14.5); WHITE BLOOD COUNT 10.6 X10'3 (4.5-11.0)
[2022-11-14 15:23] LABS: ALANINE AMINOTRANSFERASE 40 U/L (12-78); ALBUMIN 4.3 G/DL (3.4-5.0); ALBUMIN/GLOBULIN RATIO 1.4 (1.1-1.5); ALKALINE PHOSPHATASE 80 IU/L (46-116); ANION GAP 10 (8-16); ASPARTATE AMINO TRANSFERASE 22 U/L (10-37); BILIRUBIN,TOTAL 0.8 MG/DL (0.1-1.0); BLOOD UREA NITROGEN 19 MG/DL (7-18); BUN/CREATININE RATIO 27.9 (10.0-20.0); CALCIUM 9.2 MG/DL (8.5-10.1); CHLORIDE 107 MMOL/L (99-107); CREATININE 0.68 MG/DL (0.40-0.90); GLUCOSE 122 MG/DL (70-104); LIPASE 102 U/L (73-393); MAGNESIUM 1.6 MG/DL (1.5-2.4); POTASSIUM 3.8 MMOL/L (3.5-5.1); SODIUM 144 MMOL/L (135-145); TOTAL CARBON DIOXIDE 26.6 MMOL/L (24-32); TOTAL PROTEIN 7.3 G/DL (6.4-8.2); eGFR > 90 ML/MIN
[2022-11-14 15:25] LABS: ETHANOL < 0.010 GM/DL (0.0-0.010)
[2022-11-14] MEDS ORDERED: LOPE1TAB46 PO (15:37)
[2022-11-14 15:43] VITALS: BP 131/68
[2022-11-14 15:46] LABS: CLARITY,URINE CLOUDY (Clear); COLOR,URINE YELLOW (Yellow); GLUCOSE, URINE NEGATIVE (Neg); KETONES,URINE NEGATIVE (Neg); LEUKOCYTE ESTERASE ,URINE NEGATIVE (Neg); NITRITES, URINE NEGATIVE (Neg); OCCULT BLOOD,URINE NEGATIVE (Neg); PH,URINE 5.5 (4.8-8.0); PROTEIN,URINE NEGATIVE (Neg); UROBILINOGEN,URINE 0.2 E.U/dL (0.2-1.0)
[2022-11-14 15:48] LABS: URINE HCG NEGATIVE (NEG)
[2022-11-14 15:51] LABS: UA COLLECTION TYPE NON-SPECIFIED
[2022-11-14 15:52] LABS: MUCUS STRANDS MANY /LPF (Neg); SQUAMOUS EPITHELIAL CELL,UR MANY /LPF (FEW)
[2022-11-14 15:53] LABS: URINE AMPHETAMINE SCREEN NEGATIVE (Neg); URINE BARBITUATE SCREEN NEGATIVE (Neg); URINE BENZODIAZEPINES SCREEN NEGATIVE (Neg); URINE CANNABINOID SCREEN NEGATIVE (Neg); URINE COCAINE SCREEN NEGATIVE (Neg); URINE METHADONE SCREEN NEGATIVE (Neg); URINE OPIATE SCREEN NEGATIVE (Neg); URINE PHENCYCLIDINE SCREEN NEGATIVE (Neg)
[2022-11-14 15:54] LABS: BACTERIA,URINE 1+ /HPF (Neg); RBC,URINE NONE SEEN /HPF (0-2); TRANSITIONAL EPI CELLS,URINE FEW /HPF; WBC,URINE 0-4 /HPF (0-4)
--- NOTE | 2022-11-14 16:00 | NUR ---
assisting RN with pt care. pt amb with steady gait to nurses station, no dizziness, no lightheadedness, pt feels comfortable going home via the bus "I am ready to go home and rest"
== END 2022-11-14 16:04 | disposition home or self-care (01) ==
LOC: ER 13:21
DX: E86.0 Dehydration (principal); R19.7 Diarrhea, unspecified; Z88.0 Allergy status to penicillin; T67.5XXA Heat exhaustion, unspecified, initial encounter; Z88.1 Allergy status to other antibiotic agents; Z88.2 Allergy status to sulfonamides; Z91.041 Radiographic dye allergy status; Z88.5 Allergy status to narcotic agent; X58.XXXA Exposure to other specified factors, initial encounter; Y93.89 Activity, other specified; Y92.89 Other specified places as the place of occurrence of the external cause; Y99.8 Other external cause status
CPT/HCPCS: 36415; 80053; 80305; 80320; 81001; 81025; 83690; 83735; 85025; 93005; 96360; 99284; J7030

== ENCOUNTER 2025-01-26 16:14 | Emergency (ER) | payer MEDICAID ==
[~2025-01-26] VITALS: Ht 167.6 cm; Wt 85.0 kg
[~2025-01-26 16:14] MED LIST changes: +LOPE1TAB46 PO; +NAPR-1168 PO; -NAPR-996 PO
[2025-01-26 16:22] VITALS: BP 116/75; PULSE 68; RESP 16; O2SAT 99
--- NOTE | 2025-01-26 16:52 | Physician Documentation ---
History of Present Illness ~ Chief Complaint: Extremity Swelling Stated Complaint: TOE AND FINGER PAIN Time Seen by MD: 17:29 Primary Medical Doctor: [facility] HPI This is a 54-year-old female who presents with swelling to her right 5th toe and pain caused by stubbing my toe and pain to her 3rd right finger following a ground level trip and fall catching herself with right hand preventing herself from falling fully to the ground. Patient reports no other injuries and reports no other acute symptoms or concerns. Medication Reconciliation Allergies: Coded Allergies: penicillin G (Verified Allergy, Intermediate, RASH, 11/14/22) polymyxin B (Verified Allergy, Intermediate, RASH, 11/14/22) povidone-iodine (Verified Allergy, Intermediate, RASH, 11/14/22) bacitracin (Verified Allergy, Mild, RASH, 11/14/22) Sulfa (Sulfonamide Antibiotics) (Verified Allergy, Unknown, RASH, 11/14/22) amoxicillin (Verified Allergy, Unknown, RASH, 11/14/22) codeine (Verified Allergy, Unknown, RASH, 04/29/22) Scheduled Acetaminophen/Dp-Hydram Hcl (Tylenol Pm), 1 TAB PO HS, (Reported) Albuterol Sulfate (Ventolin Hfa), 2 PUFFS INH DAILY, (Reported) Albuterol Sulfate (Proventil Hfa), 2 PUFFS INH Q6H Beclomethasone Dipropionate (Qvar Redihaler), 1 PUFFS PO BID, (Reported) Cephalexin*Monohydrate* (Keflex*), 1 CAP PO QID Cyclobenzaprine* (Cyclobenzaprine*), 1 TAB PO TID, (Reported) Ferrous Sulfate* (Ferrous Sulfate*), 1 TAB PO BID, (Reported) Levetiracetam (Levetiracetam), 750 MG PO BID, (Reported) Levetiracetam (Keppra), 1 TAB PO Q12H Lidocaine (Ztlido), 1 PATCH TOP DAILY Lisinopril (Lisinopril), 1 TAB PO DAILY, (Reported) Loperamide Hcl/Simethicone (Imodium Ms Relief Caplet), 1 EACH PO BID Loratadine (Loratadine), 1 TAB PO DAILY, (Reported) Montelukast Sodium (Montelukast Sodium), 1 TAB PO DAILY, (Reported) Mu-Vits-Min Th/Lycopene/Lutein (Centrum Silver Tablet), 1 EACH PO DAILY, (Reported) Naproxen (Naproxen), 1 TAB PO BID, (Reported) Omeprazole (Omeprazole), 1 CAP PO BID, (Reported) Scheduled PRN Acetaminophen (Tylenol Extra Strength), 1 TAB PO BIDBL PRN for pain or fever, (Reported) Past Medical History Past Medical History: Seizures, Asthma, GERD, Diabetes, Anxiety Past Surgical History: orthopedic surgeries, other Other Past Surgical History: myringotomy, tumor removal, left salpingo- oophorectomy Alcohol Use: None Drug Use: none Lives with: Family Lives In: Home Occupation: disabled Review of Systems ROS As stated above in the HPI, otherwise all systems are reviewed and negative. Physical Exam Vital Signs: Temperature: 98.2, Source: Temporal, Heart Rate: 68, Respiratory Rate: 16, BP: 116/75, Pulse Oximetry: 99, Weight: 85.000 Oxygen Flow Rate: 0 General Appearance VITALS: Reviewed and as above. GENERAL: Alert, nontoxic appearing, no apparent distress. RESPIRATORY: No increased work of breathing, no respiratory distress, speaking in full clear sentences CV: Brisk capillary refill to right 3rd finger, brisk capillary refill to right 5th toe MUSCULOSKELETAL: Erythema and swelling to right 3rd finger, erythema and swelling to right 5th toe. Strength intact to right 3rd finger, no evidence of tendon involvement NEURO: Intact to right 3rd finger, sensation intact to right 5th toe Progress Results/Orders Results/Orders Orders - DERRICK SMITH Ortho Orders (01/26/25 ) Completed Orders - DERRICK SMITH Ketorolac Trometh 15mg/Ml Vial (Toradol (01/26/25 18:30) Ibuprofen Tablet (Motrin Tablet) (01/26/25 18:50) Medications Received in ER Medications (Trade) Dose Ordered Sig/Richard Route PRN Reason Start Time Stop Time Status Last Admin Dose Admin (Motrin tablet) 800 mg ONCE ONCE PO 01/26/25 18:50 01/26/25 18:51 DC 01/26/25 19:06 800 MG Vital Signs 01/26/25 01/26/25 16:22 19:11 Temp 98.2 98.2 Pulse 68 Resp 16 B/P (MAP) 116/75 Pulse Ox 99 O2 Flow Rate 0 EKG/XRAY/CT/US/VASC/MRI Bone/Soft Tissue X-Ray (Ext.) #1: Additional Comment Exam: TOE(S) EXAM: DI TOE(S) INDICATION: TOE PAIN TECHNIQUE: 3 views of the right toes COMPARISON: TOE(S) on DOS: 12/10/20 FINDINGS/IMPRESSION: Nondisplaced fracture of the 5th proximal phalangeal head/neck. No intra- articular fracture. Syndesmotic screw across Lisfranc ligamentous proper. Electronically Signed by:DON RING MD Date & Time: 01/26/251713 Dictated by: DON RING MD Dictation date and time: 01/26/251713 I have reviewed and agree with the radiology report. I have reviewed and interpreted the imaging as: Fracture of proximal 5th metatarsal Bone/Soft Tissue X-Ray (Ext.) #2: Additional Comment Exam: FINGER(S) EXAM: DI FINGER(S) INDICATION: Finger Pain TECHNIQUE: 3 views of the right fingers COMPARISON: None FINDINGS/IMPRESSION: No radiographic evidence of an acute osseous abnormality. There is no acute fracture, osseous malalignment, or aggressive focal osseous lesion. There is no radiographically apparent joint space narrowing. Electronically Signed by:DON RING MD Date & Time: 01/26/251714 Dictated by: DON RING MD Dictation date and time: 01/26/251714 I have reviewed and agree with the radiology report. I have reviewed and interpreted the imaging as: No fracture or dislocation Medical Decision Making Findings MSE performed in triage and patient returned to ED lobby by nursing staff to await available ED room This 54-year-old female presented with pain to her right 5th toe and right 3rd finger after stubbing her toe which caused her to trip where she caught herself with her right hand causing injury to her right 3rd finger, on physical exam there was tenderness to the right 3rd finger though no evidence of tendon damage as range of motion and strength was intact, finger additionally neurovascularly intact. Right 5th toe was tender and mildly swollen on physical exam though neurovascularly intact. Imaging ordered. Nondisplaced fracture of the 5th metatarsal of right foot was observed on x-ray, no fracture observed on 3rd digit right hand. Patient is otherwise well-appearing no other injuries reported or observed on physical exam. Patient was medicated for pain and placed in a stiff-soled shoe to be discharged with home care and follow up instructions. Patient provided careful return to care precautions which she verbalized understanding of. Differential Dx:Considerations: Include: Cellulitis, Compartment syndrome, Contusion, Other (Neurovascular injury, sprain, fracture, laceration, abrasion,) Departure Time of Disposition: 18:39 Disposition: 01 HOME / SELF CARE / HOMELESS Impression: Primary Impression: Fracture of fifth toe, right, closed Qualified Codes: S92.501A - Displaced unspecified fracture of right lesser toe(s), initial encounter for closed fracture Additional Impression: Finger pain, right Condition: Improved Discharge Instructions: RICE Therapy for Routine Care of Injuries, [id number], Toe Fracture, [id number] Additional Instructions: Please wear the stiff-soled shoe to prevent further injury to your right toe. Please use the crutches as provided to rest the foot until your toe pain decreases, you may use ibuprofen and or Tylenol as needed for pain as directed by [id number] packaging. Please follow up with your primary care provider in the next few days. Please return to the emergency department for any new or worsening concerning symptoms. Referrals: NO PRIMARY CARE PROVIDER (PCP) Education Educated: Patient Educated regarding: diagnosis, treatment, prognosis, need for follow up Signature Scribe Signature: No scribe Attestation: The note accurately reflects work and decisions made by me.JAYNE Hunt 01/26/25 20:22 DERRICK SMITH Jan 26, 2025 16:52
--- NOTE | 2025-01-26 17:16 | RADIOLOGY REPORT ---
EXAM: DI TOE(S) INDICATION: TOE PAIN TECHNIQUE: 3 views of the right toes COMPARISON: TOE(S) on DOS: 12/10/20 FINDINGS/IMPRESSION: Nondisplaced fracture of the 5th proximal phalangeal head/neck. No intra- articular fracture. Syndesmotic screw across Lisfranc ligamentous proper.
--- NOTE | 2025-01-26 17:18 | RADIOLOGY REPORT ---
EXAM: DI FINGER(S) INDICATION: Finger Pain TECHNIQUE: 3 views of the right fingers COMPARISON: None FINDINGS/IMPRESSION: No radiographic evidence of an acute osseous abnormality. There is no acute fracture, osseous malalignment, or aggressive focal osseous lesion. There is no radiographically apparent joint space narrowing.
[2025-01-26] MEDS ORDERED: ketorolac trometh 15mg/ml vial 15 MG/ML ML IM ONE (18:30)
[2025-01-26] MEDS: ibuprofen tablet 400 MG TABLET PO ONE (19:06)
[2025-01-26 19:11] VITALS: TEMP 98.2
== END 2025-01-26 19:22 | disposition home or self-care (01) ==
LOC: ER 16:14
DX: S92.911A Unspecified fracture of right toe(s), initial encounter for closed fracture (principal); E11.9 Type 2 diabetes mellitus without complications; J45.909 Unspecified asthma, uncomplicated; K21.9 Gastro-esophageal reflux disease without esophagitis; F41.9 Anxiety disorder, unspecified; Z88.0 Allergy status to penicillin; Z88.2 Allergy status to sulfonamides; Z88.5 Allergy status to narcotic agent; Z88.8 Allergy status to other drugs, medicaments and biological substances; Z90.721 Acquired absence of ovaries, unilateral; X58.XXXA Exposure to other specified factors, initial encounter; Y93.89 Activity, other specified; Y92.89 Other specified places as the place of occurrence of the external cause; Y99.8 Other external cause status
CPT/HCPCS: 73140; 73660; 99284; L3260